=== PATIENT | female | born 1965 | race Caucasian/White ===

== ENCOUNTER 2021-04-12 11:25 | Emergency (ER) | payer MEDICARE ==
[2021-04-12 12:15] LABS: HEMOGLOBIN 13.3 gm/dl (12.3-15.3); RED BLOOD COUNT 4.48 M/UL (4.00-5.10); WHITE BLOOD COUNT 2.9 K/UL (4.5-11.0)
[2021-04-12 12:50] LABS: BUN/CREATININE RATIO 17 (0-10)
== END 2021-04-12 17:40 | disposition home or self-care (01) ==
LOC: ER1 11:25
PROVIDERS: Physician Assistant
DX: R10.9 Unspecified abdominal pain (principal); E07.9 Disorder of thyroid, unspecified; M54.6 Pain in thoracic spine
CPT/HCPCS: 71045; 80053; 81001; 82550; 82553; 83690; 83874; 84484; 85025; 87086; 93005; 99284; Q9967